=== PATIENT | female | born 1940 | race Caucasian/White ===

== ENCOUNTER → 2017-12-09 13:47 | Outpatient (POV) | payer MEDICARE, SELFPAY | PROVIDERS: PCP Family Medicine | DX: Z00.00 Encounter for general adult medical examination without abnormal findings (principal) ==

== ENCOUNTER → 2018-01-18 12:35 | Outpatient (POV) | payer MEDICARE, SELFPAY | PROVIDERS: Visit Provider Specialist | DX: M79.672 Pain in left foot (principal); M79.671 Pain in right foot | CPT/HCPCS: 95886; 95909 ==

== ENCOUNTER → 2018-05-11 10:53 | Outpatient (POV) | payer MEDICARE, SELFPAY | PROVIDERS: Visit Provider Dermatology | DX: Z00.00 Encounter for general adult medical examination without abnormal findings (principal) ==

== ENCOUNTER → 2018-05-20 10:08 | Outpatient (CLI) | payer MEDICARE, SELFPAY ==
--- NOTE | 2018-05-20 10:12 | MM_ITS ---
MM Dig screening mamm BI w/CAD ORDERING PHYSICIAN : Jimmy Gurrola MD PATIENT AGE: 78 years GENDER: Female COMPARISON: April 2016, 2016, March and January INDICATION: ITS.REASON: ROUTINE. No hormones. No complaints. Family history. Mother with breast cancer age 80. TECHNIQUE: Standard CC and MLO images were obtained. R2 CAD reviewed. FINDINGS: Moderate dense heterogeneous breast pattern bilaterally. Particularly Moderately dense breast for this age patient.. Mammography is slight decreased sensitivity in areas of greater density. The patient's age Overall stable architecture with no dominant mass nor suspicious calcification... Scattered stable benign tiny punctate calcifications are seen throughout both breasts bilaterally likely reflecting aging changes, & benign I adenosis. These can be followed. No suspicious grouped calcifications RIGHT BREAST: No new findings of significant concern when compared to multiple previous studies. A small area of density superior right breast is similar to previous studies. LEFT BREAST:Left breast. Stable. IMPRESSION: ......... Stable bilateral mammogram. Follow-up in one year recommended. Breast are moderately dense for age BI-RADS Category: 2 Benign Finding(s) RECOMMENDED FOLLOW-UP: 1YR 1 YEAR FOLLOW-UP (A letter has been sent to the patient regarding results of the study.)
== END ==
PROVIDERS: PCP Family Medicine; Visit Provider Family Medicine
DX: Z12.31 Encounter for screening mammogram for malignant neoplasm of breast (principal)
CPT/HCPCS: 77067

== ENCOUNTER → 2018-12-08 13:42 | Outpatient (POV) | payer MEDICARE, SELFPAY | DX: Z00.00 Encounter for general adult medical examination without abnormal findings (principal) ==

== ENCOUNTER → 2018-12-10 10:18 | Outpatient (CLI) | payer MEDICARE, SELFPAY ==
--- NOTE | 2018-12-10 10:23 | XR_ITS ---
DEXA SCAN.-BONE DENSITY STUDY HIPS AND LUMBAR SPINE HISTORY: Postmenopausal female TECHNIQUE: DEXA scan hip and lumbar spine The most complete data summary and color graphic presentation of the today's ( and any prior ) DEXA findings are available in PACS. Definition and treatment guidelines included. COMPARISON: March 2014-most recent DEXA LUMBAR SPINE: On today's study L3 vertebral body demonstrates the lowest T score -0.5 with BMD1.138 g/cm sq = normal bone density. Overall mean lumbar L1-L4 T score 0.1 with BMD1.198 g/cm sq . = Normal bone density 2014 prior DEXA the mean T score -0.8 with BMD was1.09g/cm sq Thus when comparing today's study to the prior exam there's been a 9.9% % increasing mean bone density at the lumbar spine-in the interval some of this may be due to the mild sclerotic hypertrophic changes increasing about at L4/5. 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 Both right left hip demonstrate demonstrates the slight low T score - -2.4 with BMD0.702 g/cm sq at left hip; & 0.704 right hip.. Averaging all measured at hips yields today's Hip Mean T score = -1.0 with BMD0.881 g/cm sq . 2014 DEXA T score -= -1.1 with BMD0.869 g/cm sq . Thus this reflects a 1.4% increasein overall mean bone density at the hips in the interval. However there is been subtle decreased density at the femoral neck and compared to previous study as indicated on the graph in PACS IMPRESSION 1. LUMBAR SPINE: Normal overall bone density lumbar spine.. Overall T score = 0.1 ... Would Note curious 9.9% overall increased density in overall lumbar spine density since 2013. 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 (Evident in retrospect on October 2016 CT abdomen) 2. HIPS: = Overall mean T score = -1.0 reflecting overall osteopenia at hips . More pronounced osteopenia noted at femoral necks bilaterally, where the T score = -2.4 bilateral WHO criteria for post-menopausal, Women: Normal: T-score at or above -1 SD Osteopenia: T-score between -1 and -2.5 SD Osteoporosis: T-score at or below -2.5 SD
== END ==
PROVIDERS: PCP Family Medicine; Visit Provider Family Medicine
DX: M81.0 Age-related osteoporosis without current pathological fracture (principal)
CPT/HCPCS: 77080

== ENCOUNTER → 2018-12-17 12:13 | Outpatient (CLI) | payer MEDICARE, SELFPAY ==
--- NOTE | 2018-12-17 12:17 | XR_ITS ---
XR ankle LT min 3V HISTORY: ITS.REASON: BILAT ANKLE PAIN ORDERING PHYSICIAN: Jimmy Gurrola MD PATIENT AGE: 78 years Comparison: 12/06/2010 FINDINGS: The tibiotalar joint has an unremarkable appearance. There are multiple prominent partially calcified densities along the lateral aspect of the ankle at the distal to the lateral malleolus. 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 Suggest CT scan for more thorough evaluation. 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 Recommend CT for further evaluation
--- NOTE | 2018-12-17 12:17 | XR_ITS ---
XR ankle RT min 3V HISTORY: ITS.REASON: BILAT ANKLE PAIN ORDERING PHYSICIAN: Jimmy Gurrola MD PATIENT AGE: 78 years Comparison: 12/06/2010 FINDINGS: The ankle joint has an unremarkable appearance. The talar dome is unremarkable. There is a prominent os os trigonum which appears more prominent than when compared to the previous exam. In addition, there are 2 well-circumscribed partially calcified densities along the lateral aspect of the calcaneus. Previously one partially calcified density was noted in this region. These are questionable etiology and may be better evaluated with CT scan. These may be due to synovial osteochondromas have a similar but more extensive appearance of the left ankle. IMPRESSION: 1. No acute fracture. 2. Prominent os trigonum. 3. 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 Consider CT scan of both ankles for further evaluation.
== END ==
PROVIDERS: PCP Family Medicine; Visit Provider Family Medicine
DX: M79.671 Pain in right foot (principal); M79.672 Pain in left foot
CPT/HCPCS: 73610

== ENCOUNTER → 2019-03-22 10:36 | Outpatient (POV) | payer MEDICARE, SELFPAY | PROVIDERS: Visit Provider Dermatology | DX: Z00.00 Encounter for general adult medical examination without abnormal findings (principal) ==

== ENCOUNTER → 2020-12-05 13:37 | Outpatient (POV) | payer MEDICARE, SELFPAY | DX: Z00.00 Encounter for general adult medical examination without abnormal findings (principal) ==

== ENCOUNTER → 2021-01-01 09:29 | Outpatient (CLI) | payer MEDICARE, SELFPAY ==
--- NOTE | 2021-01-01 09:34 | MM_ITS ---
PROCEDURE: MM DIG SCREENING MAMM BI W/CAD Digital Breast Tomosynthesis Included CLINICAL INDICATION: SCREENING COMPARISON: MG DMSB DIG MAMM-SCREEN EMILIANO from 05/14/2016 MG DMSB DIG MAMM-SCREEN EMILIANO W/CAD from 05/18/2017 MG [facility] MM Dig screening mamm BI w/CAD from 05/20/2018 TECHNIQUE: Standard CC and MLO images and 3D Tomosynthesis was obtained. R2 CAD reviewed. FINDINGS: Breast parenchyma is heterogeneously dense which may lower the sensitivity of mammography. No new dominant mass or indirect evidence of malignancy. No suspicious type microcalcifications. Scattered benign-appearing calcifications again noted. IMPRESSION: Benign bilateral digital screening mammograms. BI-RAD Category: 2 Benign Finding FOLLOW-UP: 1 YR 1 Year Follow-up (A letter has been sent to the patient regarding results of the study.) Dictated by: Jose Armstrong MD 01/02/2021 18:04 Jose Armstrong MD in [place] 01/02/2021 18:04
== END ==
PROVIDERS: PCP Family Medicine; Visit Provider Family Medicine
DX: Z12.31 Encounter for screening mammogram for malignant neoplasm of breast (principal)
CPT/HCPCS: 77063; 77067

== ENCOUNTER → 2021-01-01 11:32 | Outpatient (POV) | payer MEDICARE, SELFPAY | PROVIDERS: Visit Provider Dermatology | DX: Z00.00 Encounter for general adult medical examination without abnormal findings (principal) ==

== ENCOUNTER → 2021-03-29 11:23 | Outpatient (CLI) | payer MEDICARE, SELFPAY | PROVIDERS: Visit Provider Internal Medicine Gastroenterology | DX: Z01.812 Encounter for preprocedural laboratory examination (principal); Z11.52 Encounter for screening for COVID-19; Z12.11 Encounter for screening for malignant neoplasm of colon | CPT/HCPCS: U0003 ==

== ENCOUNTER 2021-04-01 09:25 | Day surgery (SDC) | payer MEDICARE, SELFPAY ==
[2021-03-27 14:17] VITALS: BMI 30.7
[2021-04-01 09:55] VITALS: BP 138/69; PULSE 105; RESP 18; TEMP 36.9; O2SAT 94
--- NOTE | 2021-04-01 11:14 | P.PN_ITS ---
[facility] Anesthesia Checklist - Patient Identification Patient Identification: Arm Band - Structural Data Admitted From: Home Planned Operative Procedure/s: colonoscopy Consent for Planned Operative Procedure(s) Verified: Yes Verified Documents: Surgical Consent, History and Physical - NPO Status Verified Time NPO: 00:00 - Additional verifications Anesthesia Reactions: No - Airway Assessment C-Spine Mobility Assessed: Yes (mp2) TMJ Mobility Assessed: Yes Dentition: Good Dentition - Neurological Assessment Level of Consciousness: Awake, Alert - Anesthesia Plan Anesthesia Risk discussed: Yes Anesthesia Plan: Verified ASA Class: II Anesthesia Type: MAC [facility] History I have reviewed the patient's past medical history: Yes Medical History: Reports:: Cancer (basal cell carcinoma), Hypertension Denies:: Diabetes Mellitus Type 1, Diabetes Mellitus Type 2, Internal Pacemaker, MRSA, Seizures *Have you ever received a pneumonia vaccine?: Yes *Have you received a flu vaccine this season?: Yes Other Medical History: Reports: Hypothyroidism Anesthesia experience/problems:: nac Laterality Cases: Bilateral: Cataract, Tonsillectomy Other Surgeries: Yes: Cholecystectomy, Hysterectomy-Total. No: Pacemaker Amputation: No Fractures: No - *Social History Last grade of school completed: High school graduate Smoking Status: Never smoker Alcohol Intake: never Substance Use Type: denies use *Occupational Status:: retired *Travel in the last 8 weeks: None Family Hx:: Non-contributory
--- NOTE | 2021-04-01 11:42 | P.PCN_ITS ---
[facility] Procedure Note Procedure Note:: Colonoscopy Procedure Report: Colonoscopy with cold biopsies and cold snare polypectomy Endoscopist: Brian James II, MD Referring physician: Jimmy Gurrola MD Date of Procedure: April 01, 2021 Equipment: Olympus 190 variable stiffness pediatric colonoscope Sedation: MAC sedation Indication: Mrs. Almendarez is an 80-year-old female who is here for diagnostic colonoscopy secondary to diarrhea. This began a couple of months ago. Her bowel movements are often loose. She reports no abdominal pain or crampy discomfort. She has no bloating or gassiness. She reports no alternating constipation. She has lost 15 pounds in the last year. She did have a colonoscopy with sc in December 2016 and had 3 polyps (tubular adenomas x3) removed. Her maternal grandmother had colon cancer. She did have a colonoscopy 14 to 15 years ago in [place]. Procedure: Prior to the procedure, a history and physical exam was performed, and patient's medications and allergies were reviewed. The risks, benefits and alternatives of the sedation and procedure were discussed with the patient. All questions were answered and informed consent was obtained. The patient was brought to the procedure room. Patient identification and proposed procedure were verified by the physician and the nurse. The patient was placed in a left lateral decubitus position and the scope was passed under direct vision. Throughout the procedure, the patient's blood pressure, pulse, and oxygen saturations were monitored continuously. The colonoscopy was accomplished without difficulty. The patient tolerated the procedure well. Findings: On digital rectal examination there was normal rectal tone. There were no external hemorrhoids. The colonoscope was introduced through the anal canal to the rectum and advanced to the cecum. The ileocecal valve and appendiceal orifice were identified. The scope was advanced a short distance into the ileum which appeared grossly normal. The scope was then withdrawn into the colon. The cecum, ascending and transverse colon and mucosa were grossly normal. Cold biopsies were taken x4 from the right colon to rule out microscopic colitis. There was a flat 5 mm polyp in the descending colon removed via cold snare polypectomy. There were scattered diverticuli throughout the descending and sigmoid colon (LEFT colon). The rectum itself was normal. Upon retroflexion within the rectum there were grade 1-2 internal hemorrhoids. The preparation was excellent throughout with [place] Preparation Score of 9. The cecal time was 11 minutes. Impression: 1. Descending colon polyp (5 mm) 2. Left-sided diverticulosis 3. Grade 1-2 internal hemorrhoids Plan: I will follow-up the biopsies to rule out microscopic colitis. If these are indicative of microscopic colitis, I would recommend budesonide (Entocort) for 3 months. I am going to recommend bulking FiberCon 2 tablets p.o. every morning. I will discuss additional dietary and treatment options that may include Colestid.
[2021-04-01 11:45] VITALS: BP 109/57; PULSE 87; RESP 12; TEMP 36.4; O2SAT 93
[2021-04-01 11:55] VITALS: BP 103/58; PULSE 72; RESP 16; O2SAT 99
[2021-04-01 12:05] VITALS: BP 106/44; PULSE 68; RESP 16; O2SAT 100
[2021-04-01 12:15] VITALS: BP 107/63; PULSE 72; RESP 16; TEMP 36.4; O2SAT 100
[2021-04-01 12:58] VITALS: O2SAT 97
== END 2021-04-01 12:16 | disposition home or self-care (01) ==
LOC: OUTP 09:30
PROVIDERS: PCP Family Medicine; Visit Provider Internal Medicine Gastroenterology
PROC: 0DJD8ZZ Inspection of Lower Intestinal Tract, Via Natural or Artificial Opening Endoscopic (ICD-10-PCS; CPT 45378; principal; 2021-04-01 10:30)
DX: Z86.010 Personal history of colon polyps; K63.5 Polyp of colon; K57.32 Diverticulitis of large intestine without perforation or abscess without bleeding; K64.0 First degree hemorrhoids; I10 Essential (primary) hypertension; Z85.828 Personal history of other malignant neoplasm of skin; Z90.49 Acquired absence of other specified parts of digestive tract; Z79.899 Other long term (current) drug therapy
CPT/HCPCS: 45380; 45385; 88305

== ENCOUNTER → 2021-04-19 10:12 | Outpatient (CLI) | payer MEDICARE, SELFPAY ==
[2021-04-19 11:17] LABS: Alanine Aminotransferase 16 U/L (12-78); Albumin/Globulin Ratio 1.4 (1.1-1.8); Alkaline Phosphatase 75 U/L (38-126); Anion Gap 11.2 mEq/L (5-15); Aspartate Amino Transferase 33 U/L (14-36); Bilirubin,Total 0.4 mg/dl (0.2-1.3); Blood Urea Nitrogen 7 mg/dl (7-17); Calcium 9.3 mg/dl (8.4-10.2); Carbon Dioxide 28 mmol/L (22.0-30.0); Chloride 105 mmol/L (98-107); Estimated Glomerular Filt Rate 96 ml/min (>60); GFR (African American) 116 ML/MIN (>60); Globulin 2.9 g/dL (1.3-3.2); Glucose 100 mg/dl (74-100); Potassium 4.2 mmoL/L (3.5-5.1); Sodium 140 mmol/L (136-145); Total Protein,Serum 6.9 g/dl (6.3-8.2)
== END ==
PROVIDERS: Visit Provider Internal Medicine Gastroenterology
DX: R19.7 Diarrhea, unspecified (principal); R63.4 Abnormal weight loss
CPT/HCPCS: 36415; 80053

== ENCOUNTER → 2021-04-23 09:22 | Outpatient (CLI) | payer MEDICARE, SELFPAY ==
--- NOTE | 2021-04-23 09:25 | CT_ITS ---
PROCEDURE: CT ABDOMEN PELVIS W CON CLINICAL INDICATION: WEIGHT LOSS,DIARRHEA COMPARISON: CT ABDPELW CT ABD PELVIS W/ CONTRAST from 10/22/2016 TECHNIQUE: IV Contrast: 75ML Isovue 370 Oral Contrast 450ml Redicat Axial images obtained with sagittal and coronal reformats. All CT scans at the facility use one or more dose reduction, viz: automated exposure control, ma/kV adjustment per patient size (including targeted exams where dose is matched to indication, i.e. head), or iterative reconstruction technique. FINDINGS: LOWER THORAX: No acute finding ABDOMEN & PELVIS: Fatty liver. No focal liver lesion apparent. Prior cholecystectomy. There is a displaced clip along the posterior aspect of the right hepatic lobe. The spleen, adrenal glands, and pancreas have an unremarkable appearance. 6 x 4 mm stone is present in the lower pole of the left kidney. No renal mass. No ureteral calculi. The No intestinal obstruction or free air. Unremarkable appendix. There is diverticulosis of the sigmoid colon. No evidence of diverticulitis. Terminal ileum has an unremarkable appearance. No bowel wall thickening apparent. Prior hysterectomy. No pelvic mass or abnormal fluid collection. No acute bony findings IMPRESSION: 1. No change with no acute finding. 2. 6 mm nonobstructing stone lower pole left kidney. 3. Hepatic steatosis. 4. Colonic diverticulosis. No evidence of diverticulitis. Dictated by: Stewart Gilbert MD 04/24/2021 07:53 Stewart Gilbert MD in [facility] 04/24/2021 07:53
== END ==
PROVIDERS: PCP Family Medicine; Visit Provider Internal Medicine Gastroenterology
DX: R19.7 Diarrhea, unspecified (principal); R63.4 Abnormal weight loss
CPT/HCPCS: 74177; Q9967

== ENCOUNTER → 2022-02-11 10:21 | Outpatient (POV) | payer MEDICARE, SELFPAY | PROVIDERS: Visit Provider Dermatology | DX: Z00.00 Encounter for general adult medical examination without abnormal findings (principal) ==

== ENCOUNTER → 2022-02-11 13:38 | Outpatient (CLI) | payer MEDICARE, SELFPAY ==
--- NOTE | 2022-02-11 13:38 | MM_ITS ---
PROCEDURE INFORMATION: Exam: MG Bilateral Screening 3D Mammography Exam date and time: 02/11/2022 1:49 PM Age: 81 years old Clinical indication: Screening examination TECHNIQUE: Imaging protocol: Bilateral Screening tomosynthesis and 2D mammography including computer-aided detection (CAD) when performed. COMPARISON: 1. MG MM DIG SCREENING MAMM BI W/CAD 01/01/2021 9:56 AM 2. MG [facility] MM Dig screening mamm BI w/CAD 05/20/2018 10:26 AM FINDINGS: MAMMOGRAPHY: Breast composition: The breasts are heterogeneously dense, which may obscure small masses. Mass: None. Architectural distortion: None. Calcifications: No suspicious calcifications. Asymmetric density: None. Skin thickening: None. Axillary adenopathy: None. IMPRESSION: No mammographic evidence of malignancy. Annual screening is recommended unless otherwise clinically indicated. ASSESSMENT: BI-RADS Category 1: Negative
== END ==
PROVIDERS: PCP Family Medicine; Visit Provider Obstetrics & Gynecology
DX: Z12.31 Encounter for screening mammogram for malignant neoplasm of breast (principal)
CPT/HCPCS: 77063; 77067

== ENCOUNTER → 2022-10-29 08:57 | Outpatient (CLI) | payer MEDICARE, SELFPAY ==
[2022-10-29 10:05] LABS: Potassium 4.4 mmoL/L (3.5-5.1)
== END ==
PROVIDERS: PCP Family Medicine; Visit Provider Family Medicine
DX: E87.5 Hyperkalemia (principal)
CPT/HCPCS: 36415; 84132

== ENCOUNTER → 2023-02-12 10:33 | Outpatient (CLI) | payer MEDICARE, SELFPAY ==
--- NOTE | 2023-02-12 10:36 | MM_ITS ---
PROCEDURE INFORMATION: Exam: MG Bilateral Screening 3D Mammography Exam date and time: 02/12/2023 10:34 AM Age: 82 years old Clinical indication: Screening examination; Family history of breast cancer in mother; Mother's age: 80 years. TECHNIQUE: Imaging protocol: Bilateral Screening tomosynthesis and 2D mammography including computer-aided detection (CAD) when performed. COMPARISON: 1. MG MM DIG SCREENING MAMM BI W/CAD 02/11/2022 1:49 PM 2. MG MM DIG SCREENING MAMM BI W/CAD 01/01/2021 9:56 AM 3. MG [facility] MM Dig screening mamm BI w/CAD 05/20/2018 10:26 AM 4. MG DMSB DIG MAMM-SCREEN EMILIANO W/CAD 05/18/2017 11:01 AM FINDINGS: MAMMOGRAPHY: Breast composition: The breasts are heterogeneously dense, which may obscure small masses. Mass: No suspicious mass. Architectural distortion: None. Calcifications: No suspicious calcifications. Asymmetric density: None. Skin thickening: None. Axillary adenopathy: None. IMPRESSION: No mammographic evidence of malignancy. Annual screening is recommended unless otherwise clinically indicated. ASSESSMENT: BI-RADS Category 1: Negative
== END ==
PROVIDERS: PCP Family Medicine; Visit Provider Family Medicine
DX: Z12.31 Encounter for screening mammogram for malignant neoplasm of breast (principal)
CPT/HCPCS: 77063; 77067

== ENCOUNTER → 2023-02-28 08:00 | Outpatient (CLI) | payer MEDICARE, SELFPAY ==
[2023-02-28 08:06] LABS: Adenovirus F 40/41, stool Not Detected (NotDetected); Astrovirus Not Detected (NotDetected); Campylobacter Not Detected (NotDetected); Clostridium Difficile A/B, PCR Not Detected (NotDetected); Cryptosporidium Not Detected (NotDetected); Cyclospora Cayetanesis Not Detected (NotDetected); Entamoeba histolytica Not Detected (NotDetected); Enteroaggregative E coli Not Detected (NotDetected); Enteropathogenic E coli Not Detected (NotDetected); Enterotoxigenic E coli Not Detected (NotDetected); Giardia lamblia Not Detected (NotDetected); Norovirus Not Detected (NotDetected); Plesimonas Shigalloides, PCR Not Detected (NotDetected); Rotavirus A Not Detected (NotDetected); Salmonella, PCR Not Detected (NotDetected); Sapovirus Not Detected (NotDetected); Shiga-like toxin E coli Not Detected (NotDetected); Shigella Enterovasive E coli Not Detected (NotDetected); Vibrio Cholerae Not Detected (NotDetected); Vibrio, PCR Not Detected (NotDetected); Yersinia Entercolitica, PCR Not Detected (NotDetected)
== END ==
PROVIDERS: PCP Family Medicine; Visit Provider Nurse Practitioner Family
DX: R19.7 Diarrhea, unspecified (principal); K91.5 Postcholecystectomy syndrome; R19.4 Change in bowel habit; R15.2 Fecal urgency
CPT/HCPCS: 87506

== ENCOUNTER 2024-02-17 10:09 | Outpatient (CLI) | payer MEDICARE, SELFPAY ==
--- NOTE | 2024-02-17 10:16 | MM_ITS ---
PROCEDURE INFORMATION: Exam: MG Bilateral Screening 3D Mammography Exam date and time: 02/17/2024 10:06 AM Age: 83 years old Clinical indication: Screening examination TECHNIQUE: Imaging protocol: Bilateral Screening tomosynthesis and 2D mammography including computer-aided detection (CAD) when performed. COMPARISON: 1. MG MM DIG SCREENING MAMM BI W/CAD 02/12/2023 10:34 AM 2. MG MM DIG SCREENING MAMM BI W/CAD 02/11/2022 1:49 PM FINDINGS: MAMMOGRAPHY: Breast composition: The breasts are heterogeneously dense, which may obscure small masses. Mass: None. Architectural distortion: None. Calcifications: No suspicious calcifications. Asymmetric density: None. Skin thickening: None. Axillary adenopathy: None. IMPRESSION: No mammographic evidence of malignancy. Annual screening is recommended unless otherwise clinically indicated. ASSESSMENT: BI-RADS Category 1: Negative
== END 2024-02-17 23:59 | disposition home or self-care (01) ==
LOC: RAD 10:09
PROVIDERS: PCP Family Medicine; Visit Provider Family Medicine
DX: Z12.31 Encounter for screening mammogram for malignant neoplasm of breast (principal)
CPT/HCPCS: 77063; 77067

== ENCOUNTER 2024-04-12 11:16 | Outpatient (POV) | payer MEDICARE, SELFPAY | END 2024-04-12 23:59 | disposition home or self-care (01) | LOC: SC 11:17 | PROVIDERS: Visit Provider Dermatology | DX: Z00.00 Encounter for general adult medical examination without abnormal findings (principal) ==

== ENCOUNTER 2024-06-11 08:48 | Emergency (ER) | payer MEDICARE, SELFPAY ==
[2024-06-11 09:50] VITALS: BP 131/89; PULSE 76; RESP 19; TEMP 36.6; O2SAT 98; BMI 30.8
--- NOTE | 2024-06-11 10:08 | ED_ITS ---
Discharge Plan Disposition Patient Disposition: Home, Self-Care Condition: Good Prescriptions Prescriptions: New cephalexin 500 mg tablet 500 mg PO BID 7 Days Qty: 14 0RF No Action latanoprost 0.005 % drops 1 drp ophthalmic (eye) HS Patient Comments: INSTILL 1 DROP INTO EACH EYE EVERY DAY AT BEDTIME levothyroxine 75 mcg tablet 75 mcg PO DAILY Patient Comments: TAKE 1 TABLET BY MOUTH ONCE DAILY lisinopril 10 mg tablet 10 mg PO DAILY Patient Comments: TAKE 1 TABLET BY MOUTH ONCE DAILY dorzolamide-timolol 22.3-6.8 mg/mL drops 1 drp ophthalmic (eye) BID Patient Comments: INSTILL 1 DROP INTO EACH EYE TWICE DAILY colestipol 1 gram tablet 2 g PO BID Patient Comments: TAKE 2 TABLETS BY MOUTH TWICE DAILY Referrals Follow up/Referrals: Jimmy Gurrola MD [Primary Care Provider] - See instructions Activity Restrictions/Add. Instructions Additional Instructions/Restrictions: Increase fluids, water and not soda or tea. Can drink cranberry juice or cranberry extract. Wipe front to back Wear cotton underwear Empty bladder after intercourse Start antibiotics immediately and make sure you take the full course although you may start to see improvement over the next 48 hours. You can eat yogurt or take probiotics to decrease diarrhea or yeast infection caused by the antibiotic Be sure to follow-up anytime for new or worsening symptoms in 48 hours for wound urine culture results be sure to let you PCP no recent urine for culture so they can request records and ensure that you have appropriate antibiotic if you are not getting better or getting worse. If symptoms worsen or do not improve return or be seen in the ER. Follow-up with primary care this week. Clinical Impressions Clinical Impression: Acute UTI Instructions Patient Instructions: DI for Urinary Tract Infection (UTI) Print Language Print Language: Slovenian Discharge ED Provider: Thomas ([facility])Alena [facility] [place] H[place] General Stated complaint: uti pain Mode of Arrival: Ambulatory Source of Information: Patient Limitations: No Limitations Time Seen by Provider: 06/11/24 09:48 Description of Symptoms (Recalled from Triage Doc. by RN): PATIENT C/O PAINFUL URINATION AND CLOUDY URINE SINCE YESTERDAY HEENT Symptoms (Recalled from RN notes): No Resp Symptoms (Recalled from RN notes): No Skin Symptoms (Recalled from RN notes): No MS Symptoms (Recalled from RN notes): No Functional Status (Recalled from RN notes): WNL History of Present Illness Provider Complaint: 84-year-old female presents for burning with urination and cloudy urine for 2 days. Related Data Home Medications ?Medication ?Instructions ?Recorded ?Confirmed colestipol 1 gram tablet 2 g PO BID 06/11/24 06/11/24 dorzolamide 22.3 mg-timolol 6.8 1 drp ophthalmic (eye) BID 06/11/24 06/11/24 mg/mL eye drops latanoprost 0.005 % eye drops 1 drp ophthalmic (eye) HS 06/11/24 06/11/24 levothyroxine 75 mcg tablet 75 mcg PO DAILY 06/11/24 06/11/24 lisinopril 10 mg tablet 10 mg PO DAILY 06/11/24 06/11/24 Previous Rx's ?Medication ?Instructions ?Recorded cephalexin 500 mg tablet 500 mg PO BID 7 days #14 tabs 06/11/24 Allergies Allergy/AdvReac Type Severity Reaction Status Date / Time NSAIDS (Non-Steroidal Allergy Severe hives, Verified 05/03/24 11:47 Anti-Inflamma shortness of breath, couldnt walk Worker's Comp Is this a Worker's Comp case?: No [facility] Disclaimer: The information contained in this section may have been updated after the patient was seen, as this information can be updated by other users. Medical History (Updated 06/11/24 @ 10:12 by Alena Guzman (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) Smoking Status: Never smoker alcohol intake: never substance use type: denies use current occupational status: retired current occupational exposures/hazards: No caffeine: No ROS Obtained: Yes Systems reviewed as appropriate & no additional complaints except as documented Genitourinary Female Genitourinary: Reports system reviewed and no additional complaints, except as documented, Reports as per HPI, Reports dysuria and Reports urinary frequency Physical Exam General General appearance: alert and in no apparent distress Eye Eye exam: Present normal appearance ENT ENT exam: Present normal exam Respiratory Respiratory exam: Present normal lung sounds bilaterally Cardiovascular Cardiovascular exam: Present regular rate and normal rhythm Abdominal Exam Abdominal exam: Present soft and normal bowel sounds; Absent tenderness Neurological Exam Neurological exam: Present alert and oriented X3 Skin Skin exam: Present warm and intact Medical Decision Making Medical Records Medical records reviewed: Yes I reviewed the patient's medical records. Screening: Per USPSTF and CDC recommendations, given the prevalence of disease in our region, it is our hospital?s policy to screen for HIV and viral Hepatitis for all patients aged 18 and over and those with ongoing risk factors. Luis Felipe Inquiry Pt receiving controlled substance: No Luis Felipe was queried for this patient: No Vital Signs: 06/11/24 09:50 Temperature 97.8 F Temperature Source Oral Pulse Rate [Left Brachial] 76 Respiratory Rate 19 Blood Pressure [Left Arm] 131/89 Blood Pressure Mean [Left Arm] 103 Blood Pressure Source [Left Arm] Automatic Cuff Blood Pressure Position [Left Arm] Sitting 02 Sat by Pulse Oximetry 98 Oxygen Delivery Method Room Air Lab Data Lab results reviewed: Yes I reviewed the patient's lab results. Orders (Tests/Meds): ORDERS Category Date Time Status Urine Culture Stat Micro 06/11/24 09:42 Received
[2024-06-11 10:13] VITALS: BP 131/89; PULSE 76; RESP 19; TEMP 36.6; O2SAT 98
[2024-06-11 10:17] LABS: Apearance,Urine Clear (Clear); Bilirubin,Urine Negative (Negative); Blood, Urine Negative (Negative); Color,Urine Yellow (Yellow); Glucose,Urine (UA) Negative (Negative); Ketones,Urine Negative (Negative); Protein,Urine Negative (Negative); UTC Leukocyte Esterase,Urine 2+ (Negative); UTC Nitrate,Urine Negative (Negative); Urobilinogen,Urine 0.2 EU/dl (0.2)
== END 2024-06-11 10:16 | disposition home or self-care (01) ==
PROVIDERS: Emergency Provider Nurse Practitioner Family; PCP Family Medicine
DX: N39.0 Urinary tract infection, site not specified (principal)
CPT/HCPCS: 81003; 87086; 99213; G0381

== ENCOUNTER 2025-02-27 12:35 | Outpatient (CLI) | payer MEDICARE, SELFPAY ==
--- OUTSIDE RECORDS SUMMARY | 2024-04-21 05:00 | XMS_ITS ---
[facility] Organization [facility] Address [address] [facility] [address] [place] [id number] Care Team Providers Care Commissioned Police Officer Name Role Phone Debo Gurrolaian Primary Care Provider Allergies Allergen (clinical drug ingredient) Drug/Non Drug Allergy documented on EMR Reaction Allergy Type Onset Date Status ibuprofen Ibuprofen Rash/SOB Drug Allergy Active zoledronic acid Reclast Joint pain Drug Allergy Active Results Component Value Reference Range Notes Glucose (In-House) Reviewed date:04/29/2024 02:39:00 PM Interpretation:118 Performing Lab: Notes/Report: 118 blood glucose 118 74 - 106 mg/dL Glycohemoglobin A1c (in hous e) Reviewed date:04/29/2024 02:39:18 PM Interpretation:5.9, satisfactory Performing Lab: Notes/Report: 5.9, satisfactory glycohemoglobin 5.9% 5 - 6.5 % REASON FOR VISIT 6 months Medications Medication SIG (Take, Route, Frequency, Duration) Notes Start Date End Date Status Synthroid 75 MCG 1 tab(s) orally once a day; Duration: 90 days Active ESTRADIOL VAGINAL CREAM 0.013% APPLY TO LABIAL ADHESIONS DAILY; Duration: 30 DAYS Active Colestipol HCl 1 GM TAKE 2 TABLETS BY [facility] TWICE DAILY; Duration: 90 Active Lisinopril 10 MG 1 tab(s) orally once a day; Duration: 90 days Active Rollator Ultra-Light - as directed 04/24/2023 Active Fluticasone Propionate 50 MCG/ACT 1 spray(s) in each nostril once a day as needed; Duration: 90 days 11/21/2021 Active Latanoprost 0.005 % 1 gtt in each eye on ce a day (in the evening) Active Vitamin D3 50 MCG (1999) 1 tab(s) ora lly once a day 03/05/2017 Active Dorzolamide HCl 2 % 1 gtt in each eye bid Active Probiotic Formula 1-250 BILLION-MG 1 cap(s) orally once a day 10/06/2016 Active FiberCon 2 TAB(S) ORALLY ONCE DAILY Active Multivitamin - 1 tab(s) orally once a day Active Calcium-Vitamin D 600 MG-200 INTL UNITS 2 CAP(S) ORALLY ONCE DAILY Active Immunizations Vaccine Route Administration Date Status Comme nts Fluzone High Dose (65yr and older) IM Intramuscular 04/21/2024 Administered Vital Signs Blood pressure systolic 120 mm Hg 04/21/20 24 Blood pressure diastolic 68 mm Hg 024 Heart Rate 68 /min 04/21/2024 Height 62.50 in 04/21/2024 Weight 176.2 lbs 04/21/2024 BMI 31.71 kg/m2 04/21/2024 Encounters Encounter Location Date Provider Diagnosis [facility] [address] [facility] [address] [facility] [address] [place], [place] [id number] 04/21/2024 Jimmy Gurrola Essential hypertensi on, hypertension with unspecified goal I10 ; Acquired hypothyroidism E03.9 ; Impaired fasting glucose R73.01 and Encounter for immunization Z23 Assessments Encounter Date Diagnosis (ICD Code) Assessment Notes Treatment Notes Treatment Clinical Notes Section Notes 04/21/2024 Essential hypertension, hypertension with unspecified goal (ICD-10 - I10) 04/21/2024 Acquired hypothyroidism (ICD-10 - E03.9) 04/21/2024 Impaired fasting glucose (ICD-10 - R73.01) 04/21/2024 Encounter for immunization (ICD-10 - Z23) Plan Of Treatment Medication Medication Name Sig Start Date Stop Date Notes Synthroid 75 MCG 1 tab(s) orally once a day; Duration: 90 days Lisinopril 10 MG 1 tab(s) orally once a day; Duration: 90 days Next Appt Details Follow Up: 6 Months, Reason: Provider Name:Jimmy urbina, 05/17/2025 11:00:00 AM, [address] [facility] [address] [facility], [address], [place], [id number], Progress Notes * Andriy ALMENDAREZ:1940 (84 yo F)Acc No.[id number]:04/21/2024 Progress Notes Patient: Stefani SABILLON Provider: Kim Gurrola M.D. :1940 A ge:83 Y S ex:Female Date:04/21/2024 Address:[address] [place] [address] [id number] Subjective: * Chief Complaints: * 1 . 6 months. * HPI: C ardiology: 83 year old female presents with c/o Blood Pressure Elevated?Pt here for 6 mo f/u on hypertension, states she is doing well and does not have any concerns.? E ndocrinology: c/o Hypothyroidism P t here to f/u . * ROS: D ERMATOLOGY: no R soto. n o H teo. G ASTROENTEROLOGY: no N ausea. n o V omiting. U ROLOGY: no D ifficulty urinating. n o B lood in urine. * Medical History: H ypothyroidism, Hypertension, Osteoporosis, LT Arm Basal Cell Carcinoma, 2001, [employer] - Dr. Bellamy, Spinal Stenosis, Abdomen/ Pelvis CT, 2016, Osteoarthritis of Ankles, Colonoscopy, Colon Polyps, 2017, Colonic Diverticulosis. * Surgical History: V aginal Hysterectomy 1989, Cholecystectomy 2000, Eyelid Lift 2000, LT Hand Growth Removal 2001, Colonoscopy 2006, Colonoscopy 01/05/2017, RT Cataract Removal 01/27/2017, LT Cataract Removal 03/10/2017, Colonoscopy 2020. * Hospitalization/Major Diagno stic Procedure: [facility] Infl[facility] in bilateral [facility]- [facility] in [place] . * Family History: F ather: 65 yrs, cancer. M other: 88 yrs, pnuemonia. 1 brother(s) . 1 son(s) , 1 daughter(s) . . * Social History: C URRENT TOBACCO USE S moking Status: Patient does NOT smoke. C affeine: no. Home smoke detector use: yes. Marital Status: . Past smoking status: no, Smoking status: Does not smoke, Former Smoker: Yes, Quit smokin, Smoking pack year history: 1. Alcohol: No. * Medications: T aking ESTRADIOL VAGINAL CREAM 0.013% APPLY TO LABIAL ADHESIONS DAILY , Taking Probiotic Formula 1-250 BILLION-MG Capsule 1 cap(s) orally once a day , Taking Dorzolamide HCl 2 % Solution 1 gtt in each eye bid , Taking Multivitamin - Tablet 1 tab(s) orally once a day , Taking FiberCon 2 TAB(S) ORALLY ONCE DAILY , Taking Calcium-Vitamin D 600 MG-200 INTL UNITS CAPSULE 2 CAP(S) ORALLY ONCE DAILY , Taking Vitamin D3 50 MCG (2000 UT) Tablet 1 tab(s) orally once a day , Taking Latanoprost 0.005 % Solution 1 gtt in each eye once a day (in the evening) , Taking Fluticasone Propionate 50 MCG/ACT Suspension 1 spray(s) in each nostril once a day as needed , Taking Rollator Ultra-Light - Miscellaneous as directed , Taking Lisinopril 10 MG Tablet 1 tab(s) orally once a day , Taking Synthroid 75 MCG Tablet 1 tab(s) orally once a day , Taking Colestipol HCl 1 GM Tablet TAKE 2 TABLETS BY MOUTH TWICE DAILY , Discontinued Benzonatate 200 MG Capsule 1 capsule Orally Three times a day as needed , Discontinued Bactrim DS 800-160 MG Tablet 1 tablet Orally Two times a day , Medication List reviewed and reconciled with the patient * Allergies: R eclast: Joint pain - Side Effects, Ibuprofen: Rash/SOB - Allergy. Objective: * Vitals: W t:176.2, Temp:97.8, BP:120/68, HR:68, Nurse:naty, Ht: 62.50, BMI:31.71. * Examination: G eneral Examination: General Appearance: N AD. H eart: R SR. L ungs:?clear to auscultation. P eripheral pulses: n ormal (2+) bilaterally. E xtremities:?no leg edema. Assessment: * Assessment: 1. E ssential hypertension, hypertension with unspecified goal - I10 (Primary) 2 . A cquired hypothyroidism - E03.9 3 . I mpaired fasting glucose - R73.01? 4. E ncounter for immunization - Z23 Plan: * Treatment: 2. A cquired hypothyroidism Refill Synthroid Tablet, 75 MCG, 1 tab(s), orally, once a day, 90 days, 90, Refills 1. 3. I mpaired fasting glucose L AB: Glucose (In-House) (Collection Date & Time - 04/21/2024) 1 18 Value Reference Range b lood glucose 118 74 - 106 mg/dL * Anne Marie Adame 04/21/2024 9:30:09 AM >Anne Marie Adame 04/29/2024 2:38:58 PM > Pt informed ?LAB: Glycohemoglobin A1c (in house) (Collection Date & Time - 04/21/2024)? 5.9, satisfactory* Value Reference Range g lycohemoglobin 5.9% 5 - 6.5 % * Anne Marie Adame 04/21/2024 9:33:36 AM >Anne Marie Adame 04/29/2024 2:39:19 PM > Pt informed * Immunizations: Fluzone High Dose (65yr and older) : 0.5 mL (Route: Intramuscular) given by Anne Marie Adame on Left Deltoid (Encounter for immunization) * Procedure Codes: G 2211 Complex e/[place], [address] CAPILLARY BLOOD DRAW, 32058 GLUCOSE TEST, 29216 GLYCATED HEMOGLOBIN TEST, Modifiers: QW * Follow Up: 6 Months * Images: Billing Information: * Visit Code: 29237 Office Visit, Est Pt., Level 4. * Procedure Codes: G2211 Complex e/[place]. [address] CAPILLARY BLOOD DRAW. 55116 GLUCOSE TEST. 53834 GLYCATED HEMOGLOBIN TEST. Modifiers: QW * Electronic signature of Jessica Gurrola MD on 02/27/2025 at 12:39 PM EDT Sign off status: Pending * Provider: Kim Gurrola M.D. Date: 1 Generated for Lino baker/Shanice/eTransmitting on: 0 02/27/2025 12:39 PM EDT History and Physical Notes * HPI (History of Present Illness) Category Sub-Category Detail Notes Category Not es Endocrinology Hypothyroidism Pt here to f/u Cardiology Blood Pressure Elevated Pt here for 6 mo f/u on hypertension, states she is doing well and does not have any concerns Examination Category Sub-Category Detail Notes Category Not es General Examination Heart: RSR Lungs: clear to auscultatio n Extremities: no leg edema General Appearance: NAD Peripheral pulses: normal (2+) bilatera lly
--- OUTSIDE RECORDS SUMMARY | 2024-04-28 05:45 | XMS_ITS ---
[facility] Address [address] [place] [id number] Care Team Providers Care Vibration Analyst Name Role Phone Jimmy Gurrola Primary Care Provider Allergies Allergen (clinical drug ingredient) Drug/Non Drug Allergy documented on EMR Reaction Allergy Type Onset Date Status ibuprofen Ibuprofen Rash/SOB Drug Allergy Active zoledronic acid Reclast Joint pain Drug Allergy Active Results Component Value Reference Range Notes Urinalysis - Inhouse Reviewed date:04/28/2024 11:34:54 AM Interpretation: Performing Lab: Notes/Report: Color/Clarity yellow/cloudy Leuk 3+ Nitrite Pos Urobili 3.2 Protein trace pH 6.5 Blood trace-intact Sp. Gr. 1.015 Ketone neg Bili neg Gluc neg TEN-UTI panel Reviewed date:2024 09:33:17 AM Interpretation:Abnormal Performing Lab: Notes/Report: Abnormal REASON FOR VISIT possible UTI Medications Medication SIG (Take, Route, Frequency, Duration) Notes Start Date End Date Status Vitamin D3 50 MCG (1999 UT) 1 tab(s) ora lly once a day 03/05/2017 Active Fluticasone Propionate 50 MCG/ACT 1 spray(s) in each nostril once a day as needed; Duration: 90 days 11/21/2021 Active Latanoprost 0.005 % 1 gtt in each eye on ce a day (in the evening) Active Rollator Ultra-Light - as directed 04/24/2023 Active Colestipol HCl 1 GM TAKE 2 TABLETS BY [facility] TWICE DAILY; Duration: 90 Active Cefuroxime Axetil 500 MG 1 tablet Orally every 12 hrs; Duration: 7 days 04/28/2024 Active Calcium-Vitamin D 600 MG-200 INTL UNITS 2 CAP(S) ORALLY ONCE DAILY Active Dorzolamide HCl 2 % 1 gtt in each eye bid Active FiberCon 2 TAB(S) ORALLY ONCE DAILY Active Multivitamin - 1 tab(s) orally once a day Active ESTRADIOL VAGINAL CREAM 0.013% APPLY TO LABIAL ADHESIONS DAILY; Duration: 30 DAYS Active Lisinopril 10 MG 1 tab(s) orally once a day; Duration: 90 days Active Probiotic Formula 1-250 BILLION-MG 1 cap(s) orally once a day 10/06/2016 Active Synthroid 75 MCG 1 tab(s) orally once a day; Duration: 90 days Active Vital Signs Blood pressure systolic 116 mm Hg 04/28/20 24 Blood pressure diastolic 72 mm Hg 024 Heart Rate 65 /min 04/28/2024 Height 62.50 in 04/28/2024 Weight 175.6 lbs 04/28/2024 BMI 31.60 kg/m2 04/28/2024 Encounters Encounter Location Date Provider Diagnosis [facility] [address] [place], [place] [id number] 04/28/2024 Jimmy Gurrola Acute UTI N39.0 Assessments Encounter Date Diagnosis (ICD Code) Assessment Notes Treatment Notes Treatment Clinical Notes Section Notes 04/28/2024 Acute UTI (ICD-10 - N39.0) Plan Of Treatment Medication Medication Name Sig Start Date Stop Date Notes Cefuroxime Axetil 500 MG 1 tablet Orally every 12 hrs; Duration: 7 days 04/28/2024 Next Appt Details Follow Up: via phone to repo rt test results, Reason: Provider Name:Jimmy Brown ry, 05/17/2025 11:00:00 AM, [address] [facility] [address] [facility], [address], [place], [place], [id number], Progress Notes * Stefani ALMENDAREZDOB:1940 (84 yo F)Acc No.[id number]:04/28/2024 Progress Notes Patient: Stefani SABILLON Provider: Kim Gurrola M.D. :1940 A ge:83 Y S ex:Female Date:04/28/2024 Address:[address] [place] [address] [address] , [id number] Subjective: * Chief Complaints: * 1 . possible UTI. * HPI: U rology: 83 year old female presents with c/o burning sensation P t complains of burning during urination that started Thursday. Pt states she did take Azo and sx improved but she would like to make sure she does not have a UTI. * ROS: D ERMATOLOGY: no R soto. n o H teo. G ASTROENTEROLOGY: no N ausea. n o V omiting. U ROLOGY: no D ifficulty urinating. n o B lood in urine. * Medical History: H ypothyroidism, Hypertension, Osteoporosis, LT Arm Basal Cell Carcinoma, 2001, [employer] - Dr. Bellamy, Spinal Stenosis, Abdomen/ Pelvis CT, 2016, Osteoarthritis of Ankles, Colonoscopy, Colon Polyps, 2016, Colonic Diverticulosis. * Surgical History: V aginal Hysterectomy 1989, Cholecystectomy 2000, Eyelid Lift 2000, LT Hand Growth Removal 2001, Colonoscopy 2006, Colonoscopy 01/05/2017, RT Cataract Removal 01/27/2017, LT Cataract Removal 03/10/2017, Colonoscopy 2020. * Hospitalization/Major Diagno stic Procedure: [facility] in bilateral [facility]- [facility] in [place] . * Family History: F ather: 65 [...] Ultra-Light - Miscellaneous as directed , Taking Colestipol HCl 1 GM Tablet TAKE 2 TABLETS BY MOUTH TWICE DAILY , Taking Lisinopril 10 MG Tablet 1 tab(s) orally once a day , Taking Synthroid 75 MCG Tablet 1 tab(s) orally once a day , Medication List reviewed and reconciled with the patient * Allergies: R eclast: Joint pain - Side Effects, Ibuprofen: Rash/SOB - Allergy. Objective: * Vitals: W t:175.6, Temp:97.8, BP:116/72, HR:65, Nurse:naty, Ht: 62.50, BMI:31.60. * Examination: G eneral Examination: General Appearance: N AD. Assessment: * Assessment: 1. A cute UTI - N39.0 (Primary) Plan: * Treatment: Value Reference Range C olor/Clarity yellow/cloudy * L euk 3+ * N itrite Pos * U robili 3.2 * P rotein trace * p H 6.5 * B lood trace-intact * S p. Gr. 1.015 * K etone neg * B leela neg * G feliz neg * Anne Marie Adame 04/28/2024 10:18: 33 AM > , Provider reviewed results while patient in office. ?LAB: TEN-UTI panel (Collection Date & Time - 04/28/2024)?Abnormal* Kirsten Toth 2024 9:31 :31 AM > pt started on cefuroximeWhKirsten perez 2024 9:33:12 AM > , See phone encounter * Procedure Codes: 8 1002 Urinalysis, no micro, G2211 Complex e/m visit add on * Follow Up: v ia phone to report test results * Images: Billing Information: * Visit Code: 75001 Office Visit, Est Pt., Level 3. * Procedure Codes: 98328 Urinalysis, no micro. G2211 Complex e/m visit add on. * Electronic signature of Jessica Gurrola MD on 02/27/2025 at 12:39 PM EDT Sign off status: Pending * Provider: Kim Gurrola M.D. Date: Generated for Lino baker/Shanice/Vilma on: 0 02/27/2025 12:39 PM EDT History and Physical Notes * HPI (History of Present Illness) Category Sub-Category Detail Notes Category Not es Urology burning sensation Pt complains o f burning during urination that started Thursday. Pt states she did take Azo and sx improved but she would like to make sure she does not have a UTI Examination Category Sub-Category Detail Notes Category Not es General Examination General Appearance: NAD
--- OUTSIDE RECORDS SUMMARY | 2024-11-16 05:30 | XMS_ITS ---
Author Organization [facility] Address [address] [facility] [address] [place] [id number] Care Team Providers Care Matching Machine Operator Name Role Phone [place] sil[place] Primary Care Provider Allergies Allergen (clinical drug ingredient) Drug/Non Drug Allergy documented on EMR Reaction Allergy Type Onset Date Status ibuprofen Ibuprofen Rash/SOB Drug Allergy Active zoledronic acid Reclast Joint pain Drug Allergy Active Results Component Value Reference Range Notes P-Basic Metabolic Panel (BMP ) Reviewed date:11/17/2024 09:21:10 AM Interpretation:Normal Performing Lab: Notes/Report: Test performed by [employer] [facility] [address], [place] [address] Tony Zaragoza MD, Electronic Game Developer CLIA: [id number] Sodium 140 135-145 mmol/L Potassium 4.1 3.5-5.3 mmol/L Chloride 102 97-108 mmol/L CO2 25 22-32 mmol/L Glucose 99 65-99 mg/dL BUN 10 8-23 mg/dL Creatinine 0.84 0.50-1.00 mg/dL Calcium 10.0 8.6-10.4 mg/dL eGFR by Creatinine 68 >59 mL/min/1.73m2 P-T4 Free (thyroxine) Reviewed date:11/17/2024 09:21:09 AM Interpretation:Normal Performing Lab: Notes/Report: Test performed by [employer] [facility] [address], [place] [address] Tony Zaragoza MD, Electronic Game Developer CLIA: [id number] Thyroxine Free (free T4) 1.34 0.86-1.76 ng/dL P-Hemoglobin A1C Reviewed date:11/17/2024 09:21:09 AM Interpretation:5.9 Performing Lab: Notes/Report: Test performed by [employer] [address] [place], [place] [address] [address], [place] [address] Tony Zaragoza MD, Electronic Game Developer CLIA: [id number] Hemoglobin A1C 5.9 <5.7 % The following HbA1c ranges recommended by the [place] [employer] (ADA) may be used as an aid in the diagnosis of diabetes mellitus. HbA1c Suggested Diagnosis >=6.5% Diabetic 5.7% - 6.4% Pre-Diabetic <5.7% Non-Diabetic P-Lipid Panel Reviewed date:11/17/2024 09:21:10 AM Interpretation:Trigs 192 Performing Lab: Notes/Report: Test performed by [employer] [address] [place], [place] [address] [address], [place] [address] Tony Zaragoza MD, Electronic Game Developer CLIA: [id number] Cholesterol 155 <200 mg/dL Triglycerides 192 <150 mg/dL HDL Cholesterol 49 >39 mg/dL Cholesterol / HDL Ratio 3.16 0.00-4.44 Ratio Non-HDL Cholesterol 106 <130 mg/dL LDL Cholesterol (Calculation) 68 <130 mg/dL LDL Cholesterol Levels* Less than 100 mg/dL Optimal 100 to 129 mg/dL Near Optimal/ Above Optimal 130 to 159 mg/dL Borderline High 160 to 189 mg/dL High 190 mg/dL and above Very High * Categories as recommended by the 2004 ATPIII guidelines LDL/HDL Ratio 1.4 <3.3 Ratio LDL Cholesterol Patient History Test Date: 11/16/2024 LDL Results: 68 Units: mg/dL % Change: - P-TSH Reviewed date:11/17/2024 09:21:09 AM Interpretation:Normal Performing Lab: Notes/Report: Test performed by [employer] , [place] [address] Tony Zaragoza MD, Electronic Game Developer CLIA: [id number] TSH 3.59 0.43-5.25 mU/L P-Microalbumin/Creatinine, R andom Urine Sample Reviewed date:11/17/2024 09:21:09 AM Interpretation:Normal Performing Lab: Notes/Report: [facility] , [place] [address] Tony Zaragoza MD, Electronic Game Developer CLIA: [id number] Albumin/Creatinine Ratio, Urine 18 0-30 ug/m g Microalbumin, Urine, Random 1.4 Creatinine, Urine 78.0 P-Vitamin D 25-Hydroxy Reviewed date:11/17/2024 09:21:10 AM Interpretation:>120 Performing Lab: Notes/Report: Test performed by [employer] [address] , [place] [address] Tony Zaragoza MD, Electronic Game Developer CLIA: [id number] Vitamin D 25-Hydroxy >120 30.0-100.0 ng/mL Interpretation of Vitamin D 25 OH: < 20 ng/mL - Deficiency 20 - 29 ng/mL - Insufficiency 30 - 100 ng/mL - Sufficiency > 100 ng/mL - Super-therapeutic- toxicity may occur above this level. Clinical correlation required. Estimated Average Glucose Reviewed date:11/17/2024 09:21:10 AM Interpretation:123 Performing Lab: Notes/Report: Test performed by [employer] [address] , [facility] [place] [address] Tony Zaragoza MD, Electronic Game Developer CLIA: [id number] Estimated Average Glucose (eAG) 123 Estimated Average Glucose (eAG) is calculated using the equation eAG = (28.7 x HbA1c) - 46.7 based on the guidelines established by the ADA. If the patient has certain diseases including kidney disease, sickle cell anemia, thalassemia, or is taking medications such as dapsone, erythropoietin, or iron, eAG should not be evaluated. REASON FOR VISIT ckup Medications Medication SIG (Take, Route, Frequency, Duration) Notes Start Date End Date Status Calcium-Vitamin D 600 MG-200 INTL UNITS 2 CAP(S) ORALLY ONCE DAILY Active FiberCon 2 TAB(S) ORALLY ONCE DAILY Active Vitamin D3 50 MCG (1999) 1 tab(s) ora lly once a day 03/05/2017 Active Multivitamin - 1 tab(s) orally once a day Active Dorzolamide HCl 2 % 1 gtt in each eye bid Active Colestipol HCl 1 GM TAKE 2 TABLETS BY [facility] TWICE DAILY; Duration: 90 Active Rollator Ultra-Light - as directed 04/24/2023 Active Probiotic Formula 1-250 BILLION-MG 1 cap(s) orally once a day 10/06/2016 Active ESTRADIOL VAGINAL CREAM 0.013% APPLY TO LABIAL ADHESIONS DAILY; Duration: 30 DAYS Active Synthroid 75 MCG 1 tab(s) orally once a day; Duration: 90 days Active Fluticasone Propionate 50 MCG/ACT 1 spray(s) in each nostril once a day as needed; Duration: 90 days 11/21/2021 Active Latanoprost 0.005 % 1 gtt in each eye on ce a day (in the evening) Active Lisinopril 10 MG 1 tab(s) orally once a day; Duration: 90 days Active Problems Problem Type SNOMED Code ICD Code Onset Dates Problem Status W/U Status Risk Notes Problem BMI 31.0-31.9,ad ult (Z68.31) Active confirmed Vital Signs Blood pressure systolic 120 mm Hg 11/17/19 25 Blood pressure diastolic 70 mm Hg 025 Heart Rate 81 /min 11/16/2024 Height 62.50 in 11/16/2024 Weight 174 lbs 11/16/2024 BMI 31.31 kg/m2 11/16/2024 Encounters Encounter Location Date Provider Diagnosis [facility] [address] [place] [id number] 11/16/2024 Jimmy [place] Essential hypertensi on, hypertension with unspecified goal I10 ; Acquired hypothyroidism E03.9 ; Vitamin D deficiency E55.9 ; Impaired fasting glucose R73.01 and BMI 31.0-31.9,adult Z68.31 Assessments Encounter Date Diagnosis (ICD Code) Assessment Notes Treatment Notes Treatment Clinical Notes Section Notes 11/16/2024 Essential hypertension, hypertension with unspecified goal (ICD-10 - I10) 11/16/2024 Acquired hypothyroidism (ICD-10 - E03.9) 11/16/2024 Vitamin D deficiency (ICD-10 - E55.9) 11/16/2024 Impaired fasting glucose (ICD-10 - R73.01) 11/16/2024 BMI 31.0-31.9,adult (ICD-10 - Z68.31) Plan Of Treatment Medication Medication Name Sig Start Date Stop Date Notes Synthroid 75 MCG 1 tab(s) orally once a day; Duration: 90 days Lisinopril 10 MG 1 tab(s) orally once a day; Duration: 90 days Next Appt Details Follow Up: 6 Months, Reason: Provider Name:Jimmy Brown , 05/17/2025 11:00:00 AM, [address] [facility], [address] , [place], [place], [id number], Progress Notes * Stefani ALMENDAREZDOB:1940 (84 yo F)Acc No.[id number]:11/16/2024 Progress Notes Patient: Stefani SABILLON Provider: Kim Gurrola M.D. :1940 A ge:84 Y S ex:Female Date:11/16/2024 Address:[address] [place] [address] , [place] [id number] Subjective: * Chief Complaints: * 1 . Ckup. * HPI: C ardiology: 84 year old female presents with c/o Blood Pressure Elevated?Pt here to f/u on hypertension, states she is doing well and does not have any concerns. E ndocrinology: c/o Hypothyroidism P t here to f/u. * ROS: D ERMATOLOGY: no R soto. n o H teo. G ASTROENTEROLOGY: no N ausea. n o V omiting. U ROLOGY: no D ifficulty urinating. n o B lood in urine. * Medical History: H ypothyroidism, Hypertension, Osteoporosis, LT Arm Basal Cell Carcinoma, 2001, COMPLIANCE MGR - Dr. Bellamy, Spinal Stenosis, Abdomen/ Pelvis CT, 2016, Osteoarthritis of Ankles, Colonoscopy, Colon Polyps, 2017, Colonic Diverticulosis, Neuropathy, Lumbar Disc Disease. * Surgical History: V aginal Hysterectomy 1989, Cholecystectomy 2000, Eyelid Lift 2000, LT Hand Growth Removal 2001, Colonoscopy 2006, Colonoscopy 01/05/2017, RT Cataract Removal 01/27/2017, LT Cataract Removal 03/10/2017, Colonoscopy 2020. * Hospitalization/Major Diagno stic Procedure: [facility] - Inflammation in bilateral feet- [facility] in [place] . * Family History: F ather: 65 [...] 1 tab(s) orally once a day , Discontinued Macrobid 100 MG Capsule 1 capsule with food Orally every 12 hrs , Medication List reviewed and reconciled with the patient * Allergies: R eclast: Joint pain - Side Effects, Ibuprofen: Rash/SOB - Allergy. Objective: * Vitals: W t: 174, Temp: 98.0, BP: 120/70, HR: 81, Nurse: naty, Ht: 62.50, BMI:31.31. * Examination: G eneral Examination: General Appearance: N AD. H eart: R SR. L ungs:?clear to auscultation. P eripheral pulses: n ormal (2+) bilaterally. E xtremities:?no leg edema. Assessment: * Assessment: 1. A cquired hypothyroidism - E03.9 2 . E ssential hypertension, hypertension with unspecified goal - I10 3 . V itamin D deficiency - E55.9 ?4. I mpaired fasting glucose - R73.01 5 . B ME 31.0-31.9,adult - Z68.31? Plan: * Treatment: Value Reference Range T hyroxine Free (free T4) 1.34 0.86-1.76 - ng/d L * Maritza Brooks 11/17/2024 09:2 1:03 AM > See phone encounter ?LAB: P-TSH (Collection Date & Time - 11/16/2024 09:27 AM)?Normal* Value Reference Range T SH 3.59 0.43-5.25 - mU/L * Maritza Brooks 11/17/2024 09:2 1:03 AM > See phone encounter 2.?Essential hypertension, hypertension with unspecified goal? Refill Lisinopril Tablet, 10 MG, 1 tab(s), orally, once a day, 90 days, 90, Refills 1.?LAB: P-Basic Metabolic Panel (BMP) (Collection Date & Time - 11/16/2024 09:27 AM)?Normal* Value Reference Range B UN 10 8-23 - mg/dL * C alcium 10.0 8.6-10.4 - mg/dL * C hloride 102 97-108 - mmol/L * C O2 25 22-32 - mmol/L * C reatinine 0.84 0.50-1.00 - mg/dL * G lucose 99 65-99 - mg/dL * P otassium 4.1 3.5-5.3 - mmol/L * S odium 140 135-145 - mmol/L * e GFR by Creatinine 68 >59 - mL/min/1.73m2 * Maritza Brooks 11/17/2024 09:2 1:03 AM > See phone encounter ?LAB: P-Lipid Panel (Collection Date & Time - 11/16/2024 09:27 AM)?Trigs 192 * Value Reference Range C holesterol / HDL Ratio 3.16 0.00-4.44 - Ratio * C holesterol 155 <200 - mg/dL * H DL Cholesterol 49 >39 - mg/dL * L DL Cholesterol (Calculation) 68 <130 - mg/d L * L DL/HDL Ratio 1.4 <3.3 - Ratio * N on-HDL Cholesterol 106 <130 - mg/dL * T riglycerides 192 H <150 - mg/dL * Maritza Brooks 11/17/2024 09:2 1:03 AM > See phone encounter ?LAB: P-Microalbumin/Creatinine, Random Urine Sample (Collection Date & Time - 11/16/2024 09:27 AM)?Normal* Value Reference Range A lbumin/Creatinine Ratio, Urine 18 0-30 - ug /mg * C reatinine, Urine 78.0 - mg/dL * M icroalbumin, Urine, Random 1.4 - mg/dL * Maritza Brooks 11/17/2024 09:2 1:03 AM > See phone encounter 3.?Vitamin D deficiency?LAB: P-Vitamin D 25-Hydroxy (Collection Date & Time - 11/16/2024 09:27 AM)? >120* Value Reference Range V itamin D 25-Hydroxy >120 H 30.0-100.0 - ng/mL * Maritza Brooks 11/17/2024 09:2 1:03 AM > See phone encounter 4.?Impaired fasting glucose?LAB: P-Basic Metabolic Panel (BMP) (Collection Date & Time - 11/16/2024 09:27 AM)?Normal* Value Reference Range B UN 10 8-23 - mg/dL * C alcium 10.0 8.6-10.4 - mg/dL * C hloride 102 97-108 - mmol/L * C O2 25 22-32 - mmol/L * C reatinine 0.84 0.50-1.00 - mg/dL * G lucose 99 65-99 - mg/dL * P otassium 4.1 3.5-5.3 - mmol/L * S odium 140 135-145 - mmol/L * e GFR by Creatinine 68 >59 - mL/min/1.73m2 * Maritza Brooks 11/17/2024 09:2 1:03 AM > See phone encounter ?LAB: P-Hemoglobin A1C (Collection Date & Time - 11/16/2024 09:27 AM)?5.9* Value Reference Range H emoglobin A1C 5.9 H <5.7 - % * Maritza Brooks 11/17/2024 09:2 1:03 AM > See phone encounter * Labs: * L ab: Estimated Average Glucose (Collection Date & Time - 11/16/2024 09:27 AM) 1 23 Value Reference Range E stimated Average Glucose 123 - mg/dL * [facility], support 11/17/2024 05:15:06 : This order was created by the Interface. Maritza Brooks 11/17/2024 09:21:03 AM > See phone encounter * Procedure Codes: G 2211 Complex e/m visit add on, 3074F SYST BP LT 130 MM HG, 3078F DIAST BP < 80 MM HG, 3044F HG A1C LEVEL LT 7.0% * Follow Up: 6 Months * Images: Billing Information: * Visit Code: 78923 Office Visit, Est Pt., Level 4. * Procedure Codes: G2211 Complex e/m visit add on. 3074F SYST BP LT 130 MM HG. 3078F DIAST BP < 80 MM HG. 3044F HG A1C LEVEL LT 7.0%. * Electronic signature of Jessica Gurrola MD on 02/27/2025 at 12:38 PM EDT Sign off status: Pending * Provider: Kim Gurrola M.D. Date: 0 11/16/2024 Generated for Lino baker/Shanice/Hebersmitting on: 0 02/27/2025 12:38 PM EDT History and Physical Notes * HPI (History of Present Illness) Category Sub-Category Detail Notes Category Not es Endocrinology Hypothyroidism Pt here to f/u Cardiology Blood Pressure Elevated Pt here to f/u on hypertension, states she is doing well and does not have any concerns Examination Category Sub-Category Detail Notes Category Not es General Examination Heart: RSR Lungs: clear to auscultatio n Extremities: no leg edema General Appearance: NAD Peripheral pulses: normal (2+) bilatera lly
--- OUTSIDE RECORDS SUMMARY | 2025-02-27 12:38 | XMS_ITS | Patient Health Record ---
[facility] Organization [facility] Address [address] [place] [id number] Care Team Providers Care Packer Denture Name Role Phone Jimmy Gurrola Primary Care Provider [phone] Rafaela Manley Unavailable [phone] Allergies Allergen (clinical drug ingredient) Drug/Non Drug Allergy documented on EMR Reaction Allergy Type Onset Date Status ibuprofen Ibuprofen Rash/SOB Drug Allergy Active zoledronic acid Reclast Joint pain Drug Allergy Active Results Component Value Reference Range Notes Urinalysis - Inhouse Reviewed date:04/01/2024 08:53:45 AM Interpretation: Performing Lab: Notes/Report: Color/Clarity yellow/cloudy Leuk 3+ Nitrite neg Urobili 3.2 Protein neg pH 5.5 Blood 1+ Sp. Gr. 1.010 Ketone neg Bili neg Gluc neg P-Culture, Urine Reviewed date:04/05/2024 10:18:57 AM Interpretation:Enterobacter cloacae complex Performing Lab: Notes/Report: Test performed by [facility] [address] [place] [address] , [address], [place] [address] Tony Zaragoza MD, Tip Bander CLIA: [id number] Specimen Source Urine - Void Culture, Urine See Below See Microbiol ogy Report Enterobacter cloacae complex 50,000-100,000 CFU/ml Enterobacter cloacae complex Sensitivity Panel See Below Organism E.cloacaec Antibiotic INTERP Amikacin S Ampicillin R Aztreonam S Cefepime S Cefoxitin R Ceftazidime S Ceftriaxone S Ciprofloxacin S Ertapenem S Gentamicin S Levofloxacin S Meropenem S Nitrofurantoin I Piperacillin/Tazo S Tetracycline S Tobramycin S Trimeth/Sulfa S S=SUSCEPTIBLE I=INTERMEDIATE R=RESISTANT Glucose (In-House) Reviewed date:04/29/2024 02:39:00 PM Interpretation:118 Performing Lab: Notes/Report: 118 blood glucose 118 74 - 106 mg/dL Glycohemoglobin A1c (in hous e) Reviewed date:04/29/2024 02:39:18 PM Interpretation:5.9, satisfactory Performing Lab: Notes/Report: 5.9, satisfactory glycohemoglobin 5.9% 5 - 6.5 % Urinalysis - Inhouse Reviewed date:04/28/2024 11:34:54 AM Interpretation: Performing Lab: Notes/Report: Color/Clarity yellow/cloudy Leuk 3+ Nitrite Pos Urobili 3.2 Protein trace pH 6.5 Blood trace-intact Sp. Gr. 1.015 Ketone neg Bili neg Gluc neg TEN-UTI panel Reviewed date:2024 09:33:17 AM Interpretation:Abnormal Performing Lab: Notes/Report: Abnormal Estimated Average Glucose Reviewed date:11/17/2024 09:21:10 AM Interpretation:123 Performing Lab: Notes/Report: Test performed by [facility] [address] [place] [address] , [address], [place] [address] Tony Zaragoza MD, Tip Bander CLIA: [id number] Estimated Average Glucose (eAG) 123 Estimated Average Glucose (eAG) is calculated using the equation eAG = (28.7 x HbA1c) - 46.7 based on the guidelines established by the ADA. If the patient has certain diseases including kidney disease, sickle cell anemia, thalassemia, or is taking medications such as dapsone, erythropoietin, or iron, eAG should not be evaluated. P-Vitamin D 25-Hydroxy Reviewed date:11/17/2024 09:21:10 AM Interpretation:>120 Performing Lab: Notes/Report: Test performed by [facility] [address] , [place] [address] Tony Zaragoza MD, Tip Bander CLIA: [id number] Vitamin D 25-Hydroxy >120 30.0-100.0 ng/mL Interpretation of Vitamin D 25 [place]: < 20 ng/mL - Deficiency 20 - 29 ng/mL - Insufficiency 30 - 100 ng/mL - Sufficiency > 100 ng/mL - Super-therapeutic- toxicity may occur above this level. Clinical correlation required. P-Microalbumin/Creatinine, R andom Urine Sample Reviewed date:11/17/2024 09:21:09 AM Interpretation:Normal Performing Lab: Notes/Report: Test performed by [facility] [address] , [place] [address] Tony Zaragoza MD, Tip Bander CLIA: [id number] Albumin/Creatinine Ratio, Urine 18 0-30 ug/mg Microalbumin, Urine, Random 1.4 Creatinine, Urine 78.0 P-TSH Reviewed date:11/17/2024 09:21:09 AM Interpretation:Normal Performing Lab: Notes/Report: Test performed by [facility] [address] [place] [address] Tony Zaragoza MD, Tip Bander CLIA: [id number] TSH 3.59 0.43-5.25 mU/L P-Lipid Panel Reviewed date:11/17/2024 09:21:10 AM Interpretation:Trigs 192 Performing Lab: Notes/Report: Test performed by [facility] [address] [place] [address] Tony Zaragoza MD, Tip Bander CLIA: [id number] Cholesterol 155 <200 mg/dL Triglycerides 192 <150 [...] Results: 68 Units: mg/dL % Change: - P-Hemoglobin A1C Reviewed date:11/17/2024 09:21:09 AM Interpretation:5.9 Performing Lab: Notes/Report: Test performed by [facility] [address] [place] [address] , [facility], [place] [address] Tony Zaragoza MD, Tip Bander CLIA: [id number] Hemoglobin A1C 5.9 <5.7 % The following HbA1c ranges recommended by the [place] [employer] (ADA) may be used as an aid in the diagnosis of diabetes mellitus. HbA1c Suggested Diagnosis >=6.5% Diabetic 5.7% - 6.4% Pre-Diabetic <5.7% Non-Diabetic P-T4 Free (thyroxine) Reviewed date:11/17/2024 09:21:09 AM Interpretation:Normal Performing Lab: Notes/Report: Test performed by [facility] [address] , [address], [place] [address] Tony Zaragoza MD, Tip Bander CLIA: [id number] Thyroxine Free (free T4) 1.34 0.86-1.76 ng/dL P-Basic Metabolic Panel (BMP ) Reviewed date:11/17/2024 09:21:10 AM Interpretation:Normal Performing Lab: Notes/Report: Test performed by [facility] [address] , [address], [place] [address] Tony Zaragoza MD, Tip Bander CLIA: [id number] Sodium 140 135-145 mmol/L Potassium 4.1 3.5-5.3 mmol/L Chloride 102 97-108 mmol/L CO2 25 22-32 mmol/L Glucose 99 65-99 mg/dL BUN 10 8-23 mg/dL Creatinine 0.84 0.50-1.00 mg/dL Calcium 10.0 8.6-10.4 mg/dL eGFR by Creatinine 68 >59 mL/min/1.73m2 P-Culture, Urine Reviewed date:04/12/2024 10:52:08 AM Interpretation: No Significant Growth Performing Lab: Notes/Report: Test performed by [facility] [address] , [address], [place] [address] Tony Zaragoza MD, Tip Bander CLIA: [id number] Specimen Source Urine - Void Culture, Urine See Below Final Report : No Significant Growth Urinalysis - Inhouse Reviewed date:04/07/2024 09:39:15 AM Interpretation: Performing Lab: Notes/Report: Color/Clarity yellow Leuk 1+ Nitrite neg Urobili 3.2 Protein neg pH 5.0 Blood neg Sp. Gr. 1.025 Ketone neg Bili neg Gluc neg Reason For Referral No Information Medications Medication SIG (Take, Route, Frequency, Duration) Notes Start Date End Date Status Calcium-Vitamin D 600 MG-200 INTL UNITS 2 CAP(S) ORALLY ONCE DAILY Active FiberCon 2 TAB(S) ORALLY ONCE DAILY Active Vitamin D3 50 MCG (2000 UT) 1 tab(s) ora lly once a day 03/05/2017 Active Synthroid 75 MCG 1 tab(s) orally once a day; Duration: 90 days Active Fluticasone Propionate 50 MCG/ACT 1 spray(s) in each nostril once a day as needed; Duration: 90 days 11/21/2021 Active Latanoprost 0.005 % 1 gtt in each eye on ce a day (in the evening) Active Colestipol HCl 1 GM TAKE 2 TABLETS BY [facility] TWICE DAILY; Duration: 90 Active Rollator Ultra-Light - as directed 04/24/2023 Active Probiotic Formula 1-250 BILLION-MG 1 cap(s) orally once a day 10/06/2016 Active ESTRADIOL VAGINAL CREAM 0.013% APPLY TO LABIAL ADHESIONS DAILY; Duration: 30 DAYS Active Lisinopril 10 MG 1 tab(s) orally once a day; Duration: 90 days Active Multivitamin - 1 tab(s) orally once a day Active Dorzolamide HCl 2 % 1 gtt in each eye bid Active Immunizations Vaccine Route Administration Date Status Comme nts xFluzone High Dose-private (65yr&older) IM Intramuscular 04/05/2013 Administered xFluzone High Dose-private (65yr&older) IM Intramuscular 04/20/2014 Administered xFluzone High Dose-private (65yr&older) Unknown 04/07/2019 Administered xAdministration of injection SC Subcutaneous 04/19/2009 Administered Tetanus Tdap-Adacel (over 7yrs) IM Intramuscular 03/07/2010 Administered Tetanus Tdap-Adacel (over 7yrs) Unknown 03/20/2020 Administered Tetanus Tdap-Adacel (over 7yrs) IM Intramuscular 04/10/2020 Administered Shingrix IM Intramuscular 12/07/2018 Administered Prevnar (PCV20) IM Intramuscular 10/24/2022 Administered Prevnar (PCV13) IM Intramuscular 09/22/2013 Administered PNEUMOVAX 23 VACCINE IM Intramuscular 04/11/2016 Administe red PNEUMOVAX 23 VACCINE IM Intramuscular 05/24/2021 Administe red Fluzone High Dose (65yr and older) IM Intramuscular 03/27/2015 Administered Given by Bing Fluzone High Dose (65yr and older) IM Intramuscular 04/11/2016 Administered Fluzone High Dose (65yr and older) IM Intramuscular 03/31/2017 Administered Fluzone High Dose (65yr and older) IM Intramuscular 04/22/2018 Administered Fluzone High Dose (65yr and older) IM Intramuscular 04/10/2020 Administered Fluzone High Dose (65yr and older) IM Intramuscular 03/20/2021 Administered Fluzone High Dose (65yr and older) Unknown 03/31/2022 Administered Fluzone High Dose (65yr and older) Unknown 04/15/2023 Administered Fluzone High Dose (65yr and older) IM Intramuscular 04/21/2024 Administered COVID 19 Pfizer Unknown 08/14/2020 Administered COVID 19 Pfizer Unknown 09/04/2020 Administered COVID 19 Pfizer Unknown 04/17/2021 Administered Problems Problem Type SNOMED Code ICD Code Onset Dates Problem Status W/U Status Risk Notes Problem Vitamin D deficiency (88479471) Vitamin D deficiency (E55.9) Active confirmed Problem Osteopenia (253146983) Osteopenia (M85.80) Active confirmed Problem Degeneration of lumbar intervertebral disc (71571512) Degenerative disc disease, lumbar (M51.36) Active confirmed Problem Impaired fasting glucose (966332951) Impaired fasting glucose (R73.01) Active confirmed Problem Acquired hypothyroidism (023807473) Acquired hypothyroidism (E03.9) Active confirmed Problem Kidney stone (30450565) Kidney stone (N20.0) Active confirmed Problem Lumbar spinal stenosis (84135431) Spinal stenosis, lumbar (M48.06) Active confirmed Problem Osteoporosis (84463456) Osteoporosis (M81.0) Active confirmed Problem History of nutritional deficiency (14668270303801) History of vitamin D deficiency (Z86.39) Active confirmed Problem Subacute vaginitis (0763967201428067 5) Subacute vaginitis (N76.1) Active confirmed Problem Body mass index 30.00 to 34.99 (236952024687286) BMI 31.0-31.9,adult (Z68.31) Active confirmed Problem Essential hypertension (39216380) Essential hypertension, hypertension with unspecified goal (I10) Active confirmed Problem Arthropathy of lumbar facet joint (268028796) Lumbar facet arthropathy (M12.88) Active confirmed Problem Seasonal allergic rhinitis (323858736) Seasonal allergic rhinitis, unspecified trigger (J30.2) Active confirmed Problem Localized, primary osteoarthritis of the ankle and/or foot (423321758) 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) Active confirmed Vital Signs Heart Rate 81 /min 11/16/2024 Blood pressure diastolic 70 mm Hg 11/16/2024 Height 62.50 in 11/16/2024 Blood pressure systolic 120 mm Hg 11/16/2024 Weight 174 lbs 11/16/2024 BMI 31.31 kg/m2 11/16/2024 Encounters Encounter Location Date Provider Diagnosis [facility] [address] [facility] [address] [place], [place] [id number] 03/31/2024 Rafaela Crowdy Dysuria R30.0 [facility] [address] [facility] [address] [place], [place] [id number] 04/07/2024 Rafaela Crowdy Dysuria R30.0 [facility] [address] [facility] [address] [place], [place] [id number] 04/21/2024 [place] Essential hypertensi on, hypertension with unspecified goal I10 ; Acquired hypothyroidism E03.9 ; Impaired fasting glucose R73.01 and Encounter for immunization Z23 [facility] [address] [facility] [address] [place], [place] [id number] 04/28/2024 [place] Acute UTI N39.0 [facility] [address] [facility] [address] [place], [place] [id number] 11/16/2024 [place] Essential hypertensi on, hypertension with unspecified goal I10 ; Acquired hypothyroidism E03.9 ; Vitamin D deficiency E55.9 ; Impaired fasting glucose R73.01 and BMI 31.0-31.9,adult Z68.31 [facility] [address] [facility] [address] [place], [place] [id number] 03/17/2024 [place] [facility] [address] [place], [place] [id number] 04/04/2024 Rafaela Crowdy [facility] [address] [facility] [address] [place], [place] [id number] 2024 Jimmy [place] Acute UTI N39.0 [facility] [address] [facility] [address] [place], [place] [id number] 11/17/2024 [place] Assessments Encounter Date Diagnosis (ICD Code) Assessment Notes Treatment Notes Treatment Clinical Notes Section Notes 03/31/2024 Dysuria (ICD-10 - R30.0) 04/21/2024 Acquired hypothyroidism (ICD-10 - E03.9) 04/21/2024 Essential hypertension, hypertension with unspecified goal (ICD-10 - I10) 04/28/2024 Acute UTI (ICD-10 - N39.0) 2024 Acute UTI (ICD-10 - N39.0) 11/16/2024 Acquired hypothyroidism (ICD-10 - E03.9) 11/16/2024 Essential hypertension, hypertension with unspecified goal (ICD-10 - I10) 11/16/2024 Vitamin D deficiency (ICD-10 - E55.9) 04/07/2024 Dysuria (ICD-10 - R30.0) 04/21/2024 Impaired fasting glucose (ICD-10 - R73.01) 04/21/2024 Encounter for immunization (ICD-10 - Z23) 11/16/2024 Impaired fasting glucose (ICD-10 - R73.01) 11/16/2024 BMI 31.0-31.9,adult (ICD-10 - Z68.31) Plan Of Treatment Pending Test Test Name Order Date Mammogram 02/03/2025 Next Appt Details Provider Name:Jimmy Brown , 05/17/2025 11:00:00 AM, [address], [address], [place], [place], [id number], Insurance Providers Payer Name Payer Address Payer Phone Subscriber Number Group Number Insured Name Patient Relationship to Insured Coverage Start Date Coverage End Date MEDICARE PART B [address] [address] [place] [address] [phone] [id number] Stefani Almendarez Self - patient is the insured [facility] [employer] [address] [place] [id number] Stefani Almendarez Self - patient is the insured Medical (General) History Medical History History ICD Code Hypothyroidism Hypertension Osteoporosis LT Arm Basal Cell Carcinoma, [address] MAG[address] - Dr. Bellamy Spinal Stenosis, Abdomen/ Pelvis CT, 201 7 Osteoarthritis of Ankles Colonoscopy, Colon Polyps, 2017 Colonic Diverticulosis neuropathy Lumbar Disc Disease Surgical History Surgery Date(Month/Year) Vaginal Hysterectomy 1989 Cholecystectomy 2000 Eyelid Lift 2000 LT Hand Growth Removal 2001 Colonoscopy 2007 Colonoscopy 01/05/2017 RT Cataract Removal 01/27/2017 LT Cataract Removal 03/10/2017 Colonoscopy 2020 Hospitalization History Reason Date(Month/Year) [facility] - Inf lammation in bilateral feet- [facility] in [place]
--- NOTE | 2025-02-27 12:43 | MM_ITS ---
PROCEDURE INFORMATION: Exam: MG Bilateral Screening 3D Mammography Exam date and time: 02/27/2025 1:12 PM Age: 84 years old Clinical indication: Screening examination TECHNIQUE: Imaging protocol: Bilateral Screening tomosynthesis and 2D mammography including computer-aided detection (CAD) when performed. COMPARISON: 1. MG MM DIG SCREENING MAMM BI W/CAD 02/17/2024 10:06 AM 2. MG MM DIG SCREENING MAMM BI W/CAD 02/12/2023 10:34 AM FINDINGS: MAMMOGRAPHY: Breast composition: The breasts are heterogeneously dense, which may obscure small masses. Mass: None. Architectural distortion: None. Calcifications: No suspicious calcifications. Asymmetric density: None. Skin thickening: None. Axillary adenopathy: None. IMPRESSION: No mammographic evidence of malignancy. Annual screening is recommended unless otherwise clinically indicated. ASSESSMENT: BI-RADS Category 1: Negative.
== END 2025-02-27 23:59 | disposition home or self-care (01) ==
LOC: RAD 12:35
PROVIDERS: PCP Family Medicine; Visit Provider Family Medicine
DX: Z12.31 Encounter for screening mammogram for malignant neoplasm of breast (principal); R92.333 Mammographic heterogeneous density, bilateral breasts
CPT/HCPCS: 77063; 77067